=== PATIENT | female | born 1990 | race Two or more races ===

== ENCOUNTER 2017-05-06 16:40 | Emergency (ER) | payer MEDICAID ==
[~2017-05-06] VITALS: Ht 160 cm; Wt 62.8 kg
[2017-05-06 17:05] VITALS: BP 112/58
== END 2017-05-06 17:38 | disposition home or self-care (01) ==
LOC: ER 16:40
DX: J01.10 Acute frontal sinusitis, unspecified (principal); J01.00 Acute maxillary sinusitis, unspecified